=== PATIENT | female | born 1970 | race Caucasian/White ===

== ENCOUNTER → 2016-10-22 | Outpatient (CLI) | payer OTHER ==
[~2016-10-22] MED LIST: ALBUTEROL17 GM INH; ALBUTEROL20 ml INH; ALLERCLEAR10 MG PO; ALLERGY RELIEF10 M2 PO; ALLERGY10 M1 PO; AMITRIPTYLINE H50 MG PO; AMITRIPTYLINE H75 MG PO; AMLODIPINE BES2.5 MG PO; ASPIRIN81 M2 PO; BACLOFEN10 MG PO; BUSPIRONE HCL10 M2 PO; CALCIUM + D 6001 TA1 PO; CALCIUM 5001 TAB PO; CALCIUM 600 +1 EACH PO; FENOFIBRATE145 M1 PO; FISH OIL 1,001000 M2 PO; FLEXERIL10 MG PO; GEODON60 MG PO; HAIR, SKIN & N1 EAC1 PO; HAIR, SKIN & N1 EAC2 PO; HUMALOG100 U/M2 SQ; HUMALOG100 UNIT/1 SUBQ; IMITREX PO; INVOKANA300 MG PO; LEVEMIR FL100 UNIT/1 SQ; LEVEMIR100 UNITS/ SUBQ; LISINOPRIL5 MG PO; LO-DOSE ASPIRIN81 M1 PO; LOVAZA1 G PO; LYRICA100 MG PO; LYRICA200 MG PO; MAGNESIUM400 MG PO; MAGNESIUM500 MG PO; METFORMIN HCL1000 M1 PO; METFORMIN PO; MIRTAZAPINE7.5 MG PO; MONTELUKAST SOD10 MG PO; MULTI VITAMIN1 EACH PO; MULTI-DAY VITA1 EACH PO; MYCOSTATIN POWD15 GM TOP; NAPROXEN PO; NAPROXEN500 M1 PO; NYSTATIN-TRIAMC15 G1 TOP; PHENERGAN25 M1 PO; RESTORIL15 MG PO; SIMVASTATIN20 MG PO; SINGULAIR PO; STADOL; STADOL INH; SUPER B COMPLE150 MG PO; SUPER B COMPLEX1 CAP PO; SYMBICORT 16010.2 GM INH; SYMBICORT INH; TOPAMAX PO; TRILEPTAL600 MG PO; VITAMIN B-250 MG PO; VITAMIN D350000 UNIT PO; VITAMIN D50000 UNIT PO; VOLTAREN75 MG PO; ZOCOR20 MG PO; ZONEGRAN100 M1 PO; ZONEGRAN100 MG PO
== END | disposition home or self-care (01) ==
LOC: CLAB 07:53
DX: Z01.818 Encounter for other preprocedural examination (principal); E66.01 Morbid (severe) obesity due to excess calories
CPT/HCPCS: 36415; 84443; 86677; G0463

== ENCOUNTER → 2016-11-08 | Outpatient (CLI) | payer OTHER ==
--- NOTE | ~2016-11-08 | EKG ---
PATIENT: ELZBIETA LUDWIG UNIT #: [id number] Ventricular Rate: 79 BPM Atrial Rate: 79 BPM P-R Interval: 168 ms QRS Duration: 116 ms Q-T Interval: 410 ms QTC Calculation(Bezet): 470 ms P [place]: 67 degrees Calculated R [place]: -52 degrees Calculated T [place]: 14 degrees Diagnosis Line: Normal sinus rhythm Diagnosis Line: Left anterior fascicular block Diagnosis Line: Non-specific intra-ventricular conduction delay Diagnosis Line: Abnormal ECG Diagnosis Line: When compared with ECG of 24-MAR-2015 11:39, Diagnosis Line: No significant change was found Diagnosis Line: Confirmed by PACO MADRID MD ([id number]) on Diagnosis Line: 11/08/2016 11:21:55 PM INTERPRETING MD: EZ
--- NOTE | ~2016-11-08 | CR97 ---
[facility] A Service of [facility] RADIOLOGY TEXT RESULTS PATIENT: ELZBIETA LUDWIG LOCATION: [facility] : [birth year] UNIT #: [id number] AGE: [address]: Wayne Rosenbaum MD SEX: F ORDER DR: [id number] [facility] [address] [place], [place] [address] [id number] O MR#: [id number] Acc #: [id number] NAME: ELZBIETA LUDWIG : 1970 SEX: F STUDY DATE/TIME: 11/08/2016 8:51 UNIT: [facility] ROOM: STUDY DESCRIPTION: CR Esophagram Attending Physician: Wayne Rosenbaum M.D. Ordering Physician: Wayne Rosenbaum M.D. Primary Care Physician: Nicko Griffin M.D. MEDICAL IMAGING REPORT This report is preliminary unless electronic signature is present EXAM Barium esophagram INDICATION Morbid obesity. Preop for Lap-Band surgery. The fluoro time 0.3 minutes. 6 fluoroscopic images were taken. FINDINGS Mild tertiary contractions. No evidence of hiatal hernia, stricture or reflux. IMPRESSION Mild tertiary contractions otherwise unremarkable. Dictated by... Andrzej Gr M.D. THIS IS AN ELECTRONICALLY VERIFIED REPORT Andrzej Gr M.D. at 11/08/2016 4:05 PM Nellie TD: 11/08/2016 10:45 JOB #: [id number] MEDICAL IMAGING REPORT Page 1 of 1 COPY
--- NOTE | ~2016-11-08 | CR63 ---
[facility] A Service of [facility] & [facility] RADIOLOGY TEXT RESULTS PATIENT: ELZBIETA LUDWIG LOCATION: [facility] : 68 UNIT #: [id number] AGE: [address]: Wayne Rosenbaum MD SEX: F ORDER DR: [id number] [facility] [address] [place], [place] [address] [id number] O MR#: [id number] Acc #: [id number] NAME: ELZBIETA LUDWIG. : 1970 SEX: F STUDY DATE/TIME: 11/08/2016 7:53 UNIT: [facility] ROOM: STUDY DESCRIPTION: CR Chest 2 View Attending Physician: Wayne Rosenbaum M.D. Ordering Physician: Wayne Rosenbaum M.D. Primary Care Physician: Nicko Griffin M.D. MEDICAL IMAGING REPORT This report is preliminary unless electronic signature is present EXAM PA and lateral chest radiograph. HISTORY Morbid obesity. Shortness of breath with activity. Preop Lap-Band. Possible paraesophageal hernia repair. FINDINGS PA and lateral views are obtained. The cardiovascular configuration is normal and the lungs are clear. CONCLUSION Normal chest. Dictated by... Wayne Greene M.D. THIS IS AN ELECTRONICALLY VERIFIED REPORT Wayne Greene M.D. at 11/08/2016 5:18 PM IESHA/lyla TD: 11/08/2016 09:24 JOB #: [id number] MEDICAL IMAGING REPORT Page 1 of 1 COPY
[2016-11-08 08:56] LABS: HEMATOCRIT 36.5 % (35.0-45.0); HEMOGLOBIN 11.8 gm/dL (12.0-16.0); MEAN CELL VOLUME 86.7 FL (83-96); MEAN CORPUSCULAR HEMOGLOBIN 28.1 PG (28-34); MEAN CORPUSCULAR HGB CONC 32.4 g/dL (30-36); MEAN PLATELET VOLUME 7.9 FL (6.5-11.5); RED BLOOD COUNT 4.2 X10e (3.90-5.30); RED CELL DISTRIBUTION WIDTH 16.1 % (11.0-15.5); WHITE BLOOD COUNT 6.2 X10e3 (4.0-10.5)
[2016-11-08 09:36] LABS: BILIRUBIN,TOTAL 0.7 mg/dL (0.2-2.0); BUN/CREATININE RATIO 26.66; CALCIUM SERUM 8.5 mg/dL (8.4-10.2); CREATININE SERUM 0.9 mg/dL (0.6-1.4); GLOM FILT RATE Estimated 76.2 mL/min (>60); POTASSIUM 4.3 mmol/L (3.5-5.1); PROTEIN TOTAL SERUM 6.3 g/dL (6.0-8.3)
== END | disposition home or self-care (01) ==
LOC: CRAD 07:41
PROVIDERS: Surgery
DX: Z01.818 Encounter for other preprocedural examination (principal); E66.01 Morbid (severe) obesity due to excess calories
CPT/HCPCS: 36415; 71020; 74220; 80053; 80061; 84443; 85027; 93005

== ENCOUNTER → 2016-11-20 | Day surgery (SDC) | payer OTHER ==
--- NOTE | ~2016-11-20 | CR7 ---
[facility] A Service of [facility] RADIOLOGY TEXT RESULTS PATIENT: ELZBIETA LUDWIG LOCATION: [facility] : 68 UNIT #: [id number] AGE: [address]: Wayne Rosenbaum MD SEX: F ORDER DR: [id number] [facility] [address] [place], [place] [address] [id number] O MR#: [id number] Acc #: [id number] NAME: ELZBIETA LUDWIG : 1970 SEX: F STUDY DATE/TIME: 11/20/2016 10:34 UNIT: [facility] ROOM: STUDY DESCRIPTION: CR Abdomen Single AP View Attending Physician: Wayne Rosenbaum M.D. Ordering Physician: Wayne Rosenbaum M.D. Primary Care Physician: Nicko Griffin M.D. MEDICAL IMAGING REPORT This report is preliminary unless electronic signature is present EXAM Abdomen, 11/20/2016 10:34 hours HISTORY Morbid obesity, status post Lap-Band placement today, abdominal pain. COMPARISON Preop esophagram, 11/08/2016 FINDINGS Single supine view includes the lower chest and abdomen but excludes the flanks and pelvis. There is a new Lap-Band present overlying the left T11 costovertebral junction oriented at 57 degrees from vertical. Radiopaque tubing courses inferiorly to a port lying to the left of L4. There is no evidence of bowel obstruction. Note is made of a large amount of stool in both left colon and right colon. IMPRESSION 1. Status post Lap-Band placement with band overlying the left T11 costovertebral junction oriented at 57 degrees from vertical. Radiopaque tubing courses inferiorly to a port lying to the left of L4. 2. There is no bowel obstruction. A large amount of stool in the right and left colon is noted. Dictated by... Bria Dugan M.D. THIS IS AN ELECTRONICALLY VERIFIED REPORT Bria Dugan M.D. at 11/20/2016 2:28 PM NI/sandhya TD: 11/20/2016 12:36 [facility] A Service of [facility] RADIOLOGY TEXT RESULTS PATIENT: ELZBIETA LUDWIG LOCATION: [facility] #: [id number] : [birth year] UNIT #: [id number] AGE: [address]: Wayne Rosenbaum MD SEX: F ORDER DR: JOB #: [id number] MEDICAL IMAGING REPORT Page 1 of 1 COPY
--- NOTE | ~2016-11-20 | OR ---
Unit #: [id number] #: [id number] Patient: ELZBIETA LUDWIG [id number] [address] [address] [id number] O MR#: [id number] NAME: ELZBIETA LUDWIG ROOM: Date of Procedure: 11/20/2016 Admission Date: 11/20/2016 Surgeon: Wayne Rosenbaum M.D. : 1970 Attending Physician: Wayne Rosenbaum M.D. Primary Care Physician: Nicko Griffin M.D. OPERATIVE REPORT PREOPERATIVE DIAGNOSIS Chronic morbid obesity, BMI of 41. POSTOPERATIVE DIAGNOSES 1. Chronic morbid obesity, BMI of 41. 2. Paraesophageal hiatal hernia. PROCEDURE PERFORMED 1. Laparoscopic adjustable gastric band. 2. Laparoscopic paraesophageal hiatal hernia repair. POLICY OFFICER Ochoa Mendoza M.D. ANESTHESIA General endotracheal anesthesia. ESTIMATED BLOOD LOSS Minimal. IV FLUIDS 800 crystalloid. COMPLICATIONS None. INDICATIONS FOR PROCEDURE The patient is a 46-year-old with chronic morbid obesity. DESCRIPTION OF PROCEDURE The patient was taken to the operating room and placed in supine position. General anesthesia was induced. The abdomen was prepped and draped. A 3-cm incision was then made left of the midline. A 10-mm Visiport was then placed intraabdominal under direct vision. The abdomen was insufflated to 15 mmHg with CO2. The patient was then placed in a steep reversed Trendelenburg. General inspection of the abdomen revealed what appeared to be a paraesophageal hernia. This was identified with a defect at the diaphragm using anterior palpation with the instrument. We then made a small incision in the subxiphoid region. A Sb liver retractor was then placed intraabdominal and used to retract the left lobe of the liver upward to further expose the paraesophageal hernia and GE junction. I then placed a 5-mm port in the right upper quadrant, a 10-mm Unit #: [id number] #: [id number] Patient: ELZBIETA LUDWIG port in the left upper quadrant, and another 5-mm port in the left lower quadrant. The stomach was retracted medial and downward. Upon retracting the stomach, we took down the paraesophageal ligament, exposing the right and left ronaldo at the paraesophageal hernia. Any hernia sac was reduced. We then repaired the paraesophageal hernia using interrupted #0 Ethibond sutures in a [id number] type fashion. This formed a snug repair to the anterior esophagus. We then retracted the stomach medially and further exposed the angle of His using Bovie electrocautery. The stomach was then retracted laterally. We then took down the hepatogastric ligament with Bovie electrocautery. This exposed the right ronaldo. Using blunt dissection, I created a retrogastric tunnel from this point to the angle of His. The band was then placed intraabdominal through the 10-mm port site. This was then brought through the retrogastric tunnel in a pars flaccida technique. The band was then closed anteriorly to form a 20-mL to 25-mL anterior gastric pouch. The fundus was then secured to the anterior pouch to prevent movement around the stomach using two interrupted #0 Ethibond sutures. A third suture was then used as a gathering stitch from the lesser curve to the anterior stomach, gathering and imbricating the remaining fundus of the stomach. The tubing was then brought out through the midline 10-mm port site. All ports and the Sb liver retractor were removed under direct vision with no evidence of abdominal hemorrhage. A polypropylene mesh was then secured to the posterior face of the laparoscopic band port. This was secured using #0 Ethibond suture. This was then cut to shape. The port was then connected to the tubing and placed into a subcutaneous pocket just anterior to the rectus sheath. Its position was then confirmed. All tubing was then placed intraabdominal. The wounds were then closed with interrupted 4-0 Vicryl. The patient tolerated the procedure well and was sent to the recovery room in good condition. Dictated by... Momo Gates/hitesh TD: 11/20/2016 13:13 JOB #: [id number] OPERATIVE REPORT Page 1 of 1 X Wayne Rosenbaum MD PROCEDURE OPERATIVE NOTE
== END | disposition home or self-care (01) ==
LOC: CSUR 07:03
DX: E66.01 Morbid (severe) obesity due to excess calories (principal); K44.9 Diaphragmatic hernia without obstruction or gangrene; E11.319 Type 2 diabetes mellitus with unspecified diabetic retinopathy without macular edema; E11.42 Type 2 diabetes mellitus with diabetic polyneuropathy; I10 Essential (primary) hypertension; E78.5 Hyperlipidemia, unspecified; J45.909 Unspecified asthma, uncomplicated; G89.29 Other chronic pain; M54.5 Low back pain; M19.90 Unspecified osteoarthritis, unspecified site; G43.709 Chronic migraine without aura, not intractable, without status migrainosus; F41.9 Anxiety disorder, unspecified; F32.9 Major depressive disorder, single episode, unspecified; E78.00 Pure hypercholesterolemia, unspecified; Z68.41 Body mass index [BMI] 40.0-44.9, adult; Z87.891 Personal history of nicotine dependence; Z86.73 Personal history of transient ischemic attack (TIA), and cerebral infarction without residual deficits; Z88.0 Allergy status to penicillin; Z88.8 Allergy status to other drugs, medicaments and biological substances; Z79.4 Long term (current) use of insulin; Z79.82 Long term (current) use of aspirin; Z79.891 Long term (current) use of opiate analgesic; Z79.1 Long term (current) use of non-steroidal anti-inflammatories (NSAID); Z79.51 Long term (current) use of inhaled steroids; Z79.899 Other long term (current) drug therapy; Z90.49 Acquired absence of other specified parts of digestive tract
CPT/HCPCS: 74000; 82947; C1781; J0330; J1650; J1885; J2250; J2370; J2405; J2710; J3010; J3370